=== PATIENT | male | born 1965 | race Caucasian/White ===

== ENCOUNTER 2017-03-26 18:49 | Emergency (ER) | payer SELFPAY ==
[~2017-03-26] VITALS: Ht 167.6 cm; Wt 84.2 kg
[2017-03-26] MEDS ORDERED: IBUPROFEN 200 MG TABLET ONE (19:13)
[2017-03-26] MEDS ORDERED: IBUPROFEN 200 MG TABLET PO ONE (19:30)
[2017-03-26 20:00] LABS: RAPID INFLUENZA A Negative (Negative); RAPID INFLUENZA B Negative (Negative)
[2017-03-26 20:13] VITALS: BP 118/79
== END 2017-03-26 20:27 | disposition home or self-care (01) ==
LOC: ED 20:10
DX: J02.9 Acute pharyngitis, unspecified (principal); J01.90 Acute sinusitis, unspecified; E11.9 Type 2 diabetes mellitus without complications
CPT/HCPCS: 71046; 82962; 87400; 99285